=== PATIENT | male | born 1980 | race Caucasian/White ===

== ENCOUNTER 2020-03-30 00:45 | Emergency (ER) | payer OTHER ==
[~2020-03-30] VITALS: Ht 180.3 cm; Wt 75.0 kg
--- NOTE | 2020-03-30 01:24 | PHYS DOC ---
General Adult EDM: Chief Complaint: MULTIPLE TRAUMA/FALL HPI: HPI: Patient is a 40 year [id number] inmate from [facility] presents for the evaluation of a head injury. Patient states he fell out of his bunk. Unknown loss of consciousness. Patient has a 2 cm laceration along his hairline. Patient complains of headache and neck pain. Patient is alert and oriented x4 no acute distress. Patient arrived by EMS with a c-collar in place. Review of Systems: Review of Systems: Review of systems: Constitutional symptoms- No fever, no chills. Eyes- No Discharge, No Visual Loss Respiratory symptoms- No shortness of breath, No wheezing, No Dyspnea on Exer tion Cardiovascular Systems; No chest pain, No Palpitations, No syncope Gastrointestinal symptoms: NO abdominal pain, no nausea, no vomiting or diarrhea. Genitourinary symptoms: No dysuria. Musculoskeletal symptoms: No back pain No extremity pain. Positive neck pain NEUROLOGICAL Symptoms: Positive headache, no generalized weakness; No focal Weakness Skin positive abrasion positive laceration Heart Score: Risk Factors: Risk Factors: DM, Current or recent (<one month) smoker, HTN, HLP, family history of CAD, obesity. Risk Scores: Score 0 - 3: 2.5% MACE over next 6 weeks - Discharge Home Score 4 - 6: 20.3% MACE over next 6 weeks - Admit for Clinical Observation Score 7 - 10: 72.7% MACE over next 6 weeks - Early Invasive Strategies Physical Exam: PE: General: alert, no acute distress. Skin: 2 cm laceration scalp Head:: Normocephalic, atraumatic. Neck: Trachea midline. No C-spine midline step-off or deformity Eyes: EOMI, Normal conjunctiva, No drainage CARDIOVASCULAR: Regular rate and rhythm RESPIRATORY: No respiratory distress Back: Full range of motion. MUSCULOSKELETAL: Full range of motion of bilateral upper and lower extremities. GASTROINTESTINAL: Abdomen soft without rebound or guarding. NEUROLOGICAL: Alert and noted to person, place and time. No neurological deficits observed Psychiatric: Cooperative. Normal judgment EKG: EKG: [] Radiology/Procedures: Radiology/Procedures: [] Course & Med Decision Making: Course & Med Decision Making Pertinent Labs and Imaging studies reviewed. (See chart for details) []IMPRESSION: 1. No acute intracranial abnormality. 2. No acute fracture of the cervical spine. Laceration stapled 3 jerilyn placed jerilyn out in 7-10 days. Melvin Disclaimer: Melvin Disclaimer: This electronic medical record was generated, in whole or in part, using a voice recognition dictation system. Departure Departure Impression: Primary Impression: Head injury Additional Impressions: Scalp abrasion Cervical strain Condition: STABLE Patient Instructions: Head Injury, Adult, Laceration Care, Adult Justicifation of Admission Dx: Justifications for Admission: Justification of Admission Dx: N/A MARCUS LEO DO Mar 30, 2020 01:24
[2020-03-30] MEDS ORDERED: ACETAMINOPHEN 325 MG TABLET. PO ONE (01:30)
--- NOTE | 2020-03-30 02:31 | RAD ---
RS Compliance Statement: One or more of the following individualized dose reduction techniques were utilized for this examination: 1. Automated exposure control 2. Adjustment of the mA and/or kV according to patient size 3. Use of iterative reconstruction technique CT HEAD AND CERVICAL SPINE WITHOUT CONTRAST History: Reason: fall head injury / Spl. Instructions: / History: Comparison: None. Procedure: Axial images are obtained of the head from the skull base through the vertex without IV contrast. Noncontrast helical CT of the cervical spine was performed. Axial, sagittal, and coronal reconstructions were obtained. Findings: The ventricles and sulci are normal for the patient's age. No mass-effect, midline shift, hemorrhage or obvious acute infarction is identified. Basilar cisterns are patent. Bone windows demonstrate no significant calvarial abnormality. There is metallic BB foreign body of the left parietal scalp. Moderate mucosal thickening of the bilateral maxillary sinuses. Mild mucosal thickening bilateral ethmoid sinuses. No air-fluid level.. Mastoid air cells are well aerated. There is no evidence of acute fracture or acute malalignment of the cervical spine. There are no perched or jumped facet joints. There is degenerative endplate spurring of the cervical spine. Disc spaces relatively maintained. Straightening of normal cervical lordosis may be positional or due to muscle spasm. Uncinate process hypertrophy of C5/C6. Visualized soft tissues of the neck demonstrate no significant abnormalities. The visualized lung apices are clear. IMPRESSION: 1. No acute intracranial abnormality. 2. No acute fracture of the cervical spine. Electronically signed by: Gaurav Myers MD (03/30/2020 2:28 AM) [facility]
[2020-03-30 02:41] VITALS: BP 119/76
== END 2020-03-30 02:50 | disposition home or self-care (01) ==
LOC: ER 00:45
DX: S01.01XA Laceration without foreign body of scalp, initial encounter (principal); S16.1XXA Strain of muscle, fascia and tendon at neck level, initial encounter; R51 Headache; M54.2 Cervicalgia; W18.39XA Other fall on same level, initial encounter; Y93.89 Activity, other specified; Y92.89 Other specified places as the place of occurrence of the external cause; Y99.8 Other external cause status
CPT/HCPCS: 12001; 70450; 72125; 99285